=== PATIENT | female | born 1930 | race Caucasian/White ===

== ENCOUNTER → 2020-12-15 | Outpatient (CLI) | payer MEDICARE ==
[~2020-12-15] MED LIST: ISOVUE-370 76% 100ML VIAL As Ordered ONE
--- NOTE | 2021-01-03 09:02 | REP ---
INDICATION: LUNG MASS COMPARISON: Report was delayed pending retrieval of outside prior studies. Comparison is made with images from PET-CT study dated 10/13/[address] dated October 02 2020. The October 02, 2020 CT study showed a rounded area of consolidation or nodular change in the right upper lobe. TECHNIQUE: Axial contrast enhanced images from the thoracic inlet to the upper abdomen with coronal and sagittal reformations using 75 ml Isovue 370 intravenous contrast material. This CT examination was performed using the following dose reduction techniques: Automated exposure control, adjustment of mA and/or kv according to the patient's size, and use of iterative reconstruction technique. FINDINGS: The lung sparks are well aerated and demonstrate minimal age-related chronic appearing interstitial changes along with mild emphysematous disease and mild bronchiectasis. 4 mm calcified nodule in the anterior aspect of the right upper lobe (series 201; image 48). No acute consolidation. No obvious mass lesion. No effusion. No pneumothorax. No significant adenopathy noted. Tracheobronchial tree is patent. The previously noted right upper lobe opacity has resolved. There are mild bibasilar linear fibrotic changes. No hilar or mediastinal adenopathy is appreciated. There is a granulomatous calcification in the pretracheal region of the mediastinum. Atherosclerotic changes to the thoracic aorta and coronary arteries noted along with pacemaker in satisfactory position. No pericardial effusion. Surrounding musculoskeletal structures demonstrate age-related degenerative changes without focal osseous abnormality. Evidence for prior right breast reconstruction. IMPRESSION: 1. Chronic appearing changes as described above including 4 mm calcified granuloma in the right upper lobe. 2. No obvious lung mass identified by current examination. 3. No acute mediastinal or pleuroparenchymal process appreciated. The right upper lobe opacity identified on the October 02, [address] study has resolved consistent with its having been inflammatory, high ET pneumonia. <Electronically signed by Talat Murrieta > 01/03/21 [id number] <Electronically signed by Alexis Galvez > 01/03/21 [id number]
== END ==
LOC: M RAD 07:41
DX: J84.10 Pulmonary fibrosis, unspecified (principal)
CPT/HCPCS: 71260; Q9967